=== PATIENT | female | born 1980 | race Caucasian/White ===

== ENCOUNTER → 2022-05-08 12:45 | Outpatient (CLI) | payer SELFPAY ==
--- NOTE | ~2022-05-08 | CT_ITS ---
EXAMINATION: CT sinus wo con DATE: 05/08/2022 13:06 INDICATION: Bilateral ear pain. Congestion, drainage. Headache, dizziness. TECHNIQUE: Computed tomography (CT) of the paranasal sinuses was performed without contrast. Iterativ e reconstruction technique was employed. Exam dose: 459.34 mGy-cm total exam DLP. COMPARISON: None FINDINGS: There is rightward bowing of nasal septum. The soft tissue swelling of the nasal turbinates . There is mild justin bullosa of the middle nasal turbinates, more prominent on the right. The ostiomeatal units are patent. The paranasal sinuses and mastoid air cells are normally developed and aerated. IMPRESSION: Rightward bowing of nasal septum Soft tissue swelling of the nasal turbinates; mild justin bullosa of middle nasal turbinates Patent. Nasal sinuses, ostiomeatal units and mastoid air cells Reviewed, dictated and finalized at [facility]. Reviewed, dictated and finalized at [facility] [employer] IMPRESSION: Rightward bowing of nasal septum Soft tissue swelling of the nasal turbinates; mild justin bullosa of middle phillip al turbinates Patent. Nasal sinuses, ostiomeatal units and mastoid air cells
== END ==
PROVIDERS: PCP Otolaryngology; Visit Provider Otolaryngology
DX: H92.03 Otalgia, bilateral (principal); J34.2 Deviated nasal septum
CPT/HCPCS: 70486